=== PATIENT | female | born 1950 | race Caucasian/White ===

== ENCOUNTER 2017-09-13 19:05 | Emergency (ER) | payer OTHER ==
--- NOTE | 2017-09-13 19:48 | EDPHY ---
H & P Stated Complaint: cough, diff breathing Time Seen by Provider: 09/13/17 19:48 HPI/ROS: HPI: This is a 67-year-old female presents with Chief Complaint: cough, diff breathing Location: Chest Quality: Cough Duration: 10 days Signs and Symptoms: no fever, no chills, no sore throat, no body aches, no wheezing, no chest pain, no neck stiffness Timing: Worsening Severity: Moderate Context: Patient reports that she was diagnosed with asthma as a child but does not have an inhaler as an adult. She presents with complaints of continued nonproductive cough seems to be in her upper airways accompanied by coughing spells ladder very harsh in severe take her breath away. She is concerned as her symptoms have persisted over the last 10 days. She denies any wheezing, fever, chills, chest pain, palpitations. Denies any recent long distance travel, lower extremity edema. Modifying Factors: None Comment: ROS: see HPI Constitutional: No fever, no chills, no weight loss Eyes: No blurred vision Respiratory: + shortness of breath, + cough Cardiovascular: No chest pain Gastrointestinal: No nausea, no vomiting, no diarrhea Genitourinary: No dysuria Extremities: No myalgias Neurologic: No weakness, no numbness Skin: No rashes Hematologic: No bruising, no bleeding MEDICAL/SURGICAL/SOCIAL HISTORY: Medical history: Does not take any regular medications. Surgical history: Denies Social history: Employed as a CPA. CONSTITUTIONAL: Extremely well-appearing adult white female, awake and alert, no obvious distress HEENT: Atraumatic and normocephalic, PERRL, EOMI. Tympanic membranes clear. Oropharynx clear, no exudate and moist pink mucosa. Airway patent. No lymphadenopathy. No meningismus. Cardiovascular: Normal S1/S2, mild tachycardia, regular rhythm, without murmur rub or gallop. PULMONARY/CHEST: Symmetrical and nontender. Clear to auscultation bilaterally. Good air movement. No accessory muscle usage. ABDOMEN: Soft, nondistended, nontender, no rebound, no guarding, no peritoneal signs, no masses or organomegaly. No CVAT. EXTREMITIES: 2/2 pulses, strength 5/5, no deformities, no clubbing, no cyanosis or edema. NEUROLOGICAL: no focal neuro deficits. GCS 15. SKIN: Warm and dry, no erythema. no rash. Good capillary refill. Source: Patient Exam Limitations: No limitations - Personal History Current Tetanus Diphtheria and Acellular Pertussis (TDAP): Yes - Medical/Surgical History Hx Asthma: No Hx Chronic Respiratory Disease: No Hx Diabetes: No Hx Cardiac Disease: No Hx Renal Disease: No Hx Cirrhosis: No Hx Alcoholism: No Hx HIV/AIDS: No Hx Splenectomy or Spleen Trauma: No - Social History Smoking Status: Never smoked Constitutional: Initial Vital Signs Temperature (C) 37 C 09/13/17 19:09 Heart Rate 101 H 09/13/17 19:09 Respiratory Rate 20 09/13/17 19:09 Blood Pressure 126/93 H 09/13/17 19:09 O2 Sat (%) 97 09/13/17 19:09 O2 Delivery Mode Room Air Allergies/Adverse Reactions: No Known Allergies Allergy (Unverified 09/13/17 19:08) Home Medications: Medication Instructions Recorded AZITHROMYCIN [Z-PACK] 250 mg PO DAILY #6 tab 09/13/17 Albuterol [Proventil] 1 - 2 puffs IH Q4 PRN #1 aerosol 09/13/17 Ativan 09/13/17 Benzonatate [Tessalon Pearles (RX)] 100 mg PO Q6 PRN #12 cap 09/13/17 Medical Decision Making - Diagnostics Imaging Results: Imaging Impressions Chest X-Ray 09/13/17 20:08 Impression: Mild perihilar bronchitis, with no focal infiltrate. ED Course/Re-evaluation: Chest x-ray, nebulizer therapy, oral medications ordered No signs of hypoxia/wheezing Chest x-ray my read shows no acute opacity, effusion, pneumothorax, widened mediastinum, pulmonary congestion 1. Age greater equal to 50: Yes 2. Heart rate greater or equal to 100: Yes 3. SaO2 on room air less than 95%: No 4. Unilateral leg swelling: No 5. Hemoptysis: No 6. Recent surgery or trauma: No Score=2; low risk Given DuoNeb, Tessalon Perles, azithromycin with adequate relief Symptoms greater than or equal to 10 days; start antibiotics This patient was seen under the supervision of my secondary supervising physician. I evaluated care for this patient independently. Discussed this patient with Dr. Gunn who did not see the patient. Differential Diagnosis: Shortness of breath including but not limited to pulmonary infectious process, COPD, asthma, pulmonary embolus and congestive heart failure. - Data Points Medications Given: Discontinued Medications Albuterol/Ipratropium (Duoneb) 3 ml IH EDNOW ONE Stop: 09/13/17 20:09 Last Admin: 09/13/17 20:16 Dose: 3 ml Azithromycin (Zithromax) 500 mg PO EDNOW ONE PRN Reason: Protocol Stop: 09/13/17 21:14 Last Admin: 09/13/17 21:25 Dose: 500 mg Benzonatate (Tessalon Pearles) 200 mg PO EDNOW ONE Stop: 09/13/17 20:09 Last Admin: 09/13/17 20:16 Dose: 200 mg Departure - Departure Disposition: Home, Routine, Self-Care Clinical Impression: Bronchitis Condition: Good Instructions: Acute Bronchitis (ED) Referrals: MARIO ALBERTO WEI [Other] - As per Instructions Prescriptions: Albuterol [Proventil] 1 - 2 puffs IH Q4 PRN #1 aerosol PRN Reason: Short Of Breath/Dyspnea AZITHROMYCIN [Z-PACK] 250 mg PO DAILY #6 tab Benzonatate [Tessalon Pearles (RX)] 100 mg PO Q6 PRN #12 cap PRN Reason: Cough, Moderate
[2017-09-13] MEDS ORDERED: IPRATROPIUM/ALBUTEROL 3 ML DEYVIAL IH ONE (20:08)
[2017-09-13] MEDS ORDERED: BENZONATATE 100 MG CAP PO ONE (20:08)
[2017-09-13] MEDS ORDERED: AZITHROMYCIN 250 MG TAB PO ONE (21:13)
[2017-09-13 21:35] VITALS: BP 122/88; PULSE 87; RESP 19; TEMP 98.1; O2SAT 96
== END 2017-09-13 21:35 | disposition home or self-care (01) ==
DX: J20.9 Acute bronchitis, unspecified (principal); J45.909 Unspecified asthma, uncomplicated